=== PATIENT | male | born 1980 | race Caucasian/White ===

== ENCOUNTER 2022-09-08 16:59 | Outpatient (CLI) | payer BC, SELFPAY ==
[2022-09-08 09:25] LABS: Albumin* 4.6 g/dL (3.3-5.0); Chloride* 101 mmol/L (96-114); Sodium* 137 mmol/L (135-149)
[2022-09-08 09:27] LABS: Cholesterol* 123 mg/dL (90-199); Creatinine* 0.8 mg/dL (0.5-1.5); Estimated Glomerular Filt Rate 113 ml/min
[2022-09-08 09:28] LABS: Alanine Aminotransferase* 29 U/L (4-50); Alkaline Phosphatase* 84 U/L (40-150); Aspartate Amino Transferase* 26 U/L (12-35); Bilirubin Total* 1.1 mg/dL (0.1-1.5); Blood Urea Nitrogen* 12 mg/dL (5-24); Carbon Dioxide* 26 mmol/L (20-32); Glucose* 83 mg/dL (60-115); Total Protein* 7.4 g/dL (6.0-8.3); Triglycerides* 147 mg/dL (40-149)
[2022-09-08 09:29] LABS: Calcium* 9.4 mg/dL (8.4-10.6); HDL Cholesterol* 42 mg/dL (>=40); LDL Cholesterol Calculated 52 mg/dL (<100)
== END 2022-09-08 17:00 | disposition home or self-care (01) ==
PROVIDERS: PCP Family Medicine; Visit Provider Family Medicine
DX: I25.10 Atherosclerotic heart disease of native coronary artery without angina pectoris (principal)
CPT/HCPCS: 80053; 80061

== ENCOUNTER 2023-07-08 08:31 | Outpatient (CLI) | payer BC, SELFPAY | END 2023-07-08 08:32 | disposition home or self-care (01) | LOC: NFLDREF 07-09 12:39 | PROVIDERS: PCP Family Medicine; Referring Provider Family Medicine; Visit Provider Family Medicine | DX: Z00.00 Encounter for general adult medical examination without abnormal findings (principal); E78.5 Hyperlipidemia, unspecified; I10 Essential (primary) hypertension | CPT/HCPCS: 80053; 80061 ==

== ENCOUNTER 2023-10-18 12:44 | Outpatient (CLI) | payer BC, SELFPAY ==
[2023-10-18 13:45] VITALS: BP 140/78; PULSE 89; RESP 16
[2023-10-18] MEDS: PERFLUTREN LIPID MICROSPHERES 2 ML VIAL IV (13:47)
--- NOTE | 2023-10-18 14:06 | W.PM.STED ---
Stress Test Note Date Date of test: 10/18/23 Providers Primary care provider: Darrin Darden Stress test physician: Sherwin Carvalho Stress Test Note Stress test ordered: Stress Echo Indication for test: CAD Stress test medicine: Definity Results discussion: This pleasant 43-year-old gentleman presents for a stress echo, definity is needed. Discussion the risks benefits and side effects in reviewing the cardiac stress test medical history form he would like to proceed pretest EKG shows normal sinus rhythm, with a ventricular rate of 61. Q-waves are noted inferiorly in 2 3 and AVF, these may be pathological, there is no ST wave elevation noted, blood pressure was 102/76. Standard Jose M protocol is done over a time course of 9 minutes 20 seconds, he achieved a metabolic equivalent of 10.7 Mets with a maximum heart rate of 161. Test is terminated because of fulfillment of protocol, he did not have any chest pain or any anginal equivalent symptoms. There is no dysrhythmias, no ST wave changes suggestive of ischemia. Conditioning was felt to be average. Impression: Negative electrographic portion of stress echo Follow up suggested: Await echo images these will be read by Cardiology, clinical correlation with these will be needed, patient came back to baseline, left this testing facility in excellent condition.
== END 2023-10-18 13:48 | disposition home or self-care (01) ==
LOC: STRESS 12:44
PROVIDERS: PCP Family Medicine; Visit Provider Family Medicine
DX: I25.10 Atherosclerotic heart disease of native coronary artery without angina pectoris (principal); I73.9 Peripheral vascular disease, unspecified
CPT/HCPCS: 93016; 93325; 93351; Q9957

== ENCOUNTER 2023-12-20 05:23 | Emergency (ER) | payer BC, SELFPAY ==
[2023-12-20] VITALS (22 sets, daily range): BP systolic 112–132; BP diastolic 79–91; PULSE 58–67; RESP 16; TEMP 36.6; O2SAT 98–100
--- NOTE | 2023-12-20 06:01 | XR_ITS ---
Final Report Patient: NIRAJ CAMARGO Facility:?[facility] Patient ID:?[id number] Site Patient ID:?[id number]. Site :?[id number] Study:?XRay Chest portable-12/20/2023 6:13:00 AM Ordering Physician:?Jennyfer Guzman Final Report: Indication: Chest pain Technique: Chest one view Comparison: None Findings: The lungs are well-expanded and clear. No focal or diffuse opacity. No pulmonary edema. No effusion. No pneumothorax. Heart size normal for lung volumes and technique. Impression: Normal chest radiograph. Dictated by Fariba Stevens MD @ 12/20/2023 6:16:33 AM (Electronic Signature)
--- NOTE | 2023-12-20 06:19 | ED_ITS ---
HPI - Chest Pain General Date Seen: 12/20/23 Chief Complaint: Chest Pain Stated Complaint: chest pain Time Seen by Provider: 12/20/23 06:01 Source: patient, family and RN notes reviewed Mode of arrival: ambulatory Limitations: no limitations History of Present Illness HPI narrative: Woody is a very pleasant 43-year-old male with history of CO and stent placement in 2017 who comes to the emergency room with complaints of chest pain. Patient notes that he awoke at approximately 0430 hours and would have occasional episodes lasting less than 2nd of chest pain substernal lower chest. It seemed to be more associated with expiration but he cannot recreate that pain here. He had COVID 1 month ago but had complete resolution of his symptoms. He is not short of breath, nauseated nor has he experienced any lower extremity edema or calf tenderness. Here in the emergency room he does not have any pain. He still retains a gallbladder. Denies symptoms of reflux. He takes Plavix daily. Pain does not radiate into the back or into upper chest or into neck. Patient does note neck discomfort occasionally but states that this is been chronic and because he has type trapezial muscles. Patient denies increasing pain with activities such as walking. Related Data Home Medications Medication Instructions Recorded Confirmed lisinopril 5 mg tablet 5 mg PO BID 09/30/23 11/21/23 Previous Rx's Medication Instructions Recorded allopurinol 100 mg tablet 100 mg PO QDAY #90 tabs 07/11/23 atorvastatin 80 mg tablet 80 mg PO QDAY #90 tabs 07/11/23 bupropion HCl 300 mg 24 hr tablet, 300 mg PO QDAY #90 tabs 07/11/23 extended release carvedilol 12.5 mg tablet 12.5 mg PO BID #90 tabs 07/11/23 nitroglycerin 0.4 mg sublingual 0.4 mg sublingual Q5-15M #25 tabs 07/11/23 tablet clopidogrel 75 mg tablet (Plavix) 75 mg PO QDAY #90 tabs 09/30/23 nirmatrelvir 300 mg (150 mg 3 ea (3 x 300 mg (150 mg x 2)-100 11/21/23 x2)-ritonavir 100 mg tablet,dose mg) PO QAM AND QPM #30 tabs pack (Paxlovid) Allergies Allergy/AdvReac Type Severity Reaction Status Date / Time No Known Drug Allergies Allergy Verified 11/21/23 10:36 Review of Systems Status of ROS Reports: 10 or more systems reviewed and unremarkable except as noted in History and below Narrative COVID 1 month ago. Complete resolution of symptoms Const Denies: fever or chills Eyes Denies: change in vision ENMT Reports: neck pain (Chronic because of tight trapezial areas. No new pain tonight); Denies: throat pain Cardio Reports: chest pain; Denies: palpitations, swelling of feet/ankles, lightheadedness or shortness of breath with exertion Resp Denies: shortness of breath or cough GI Denies: abdominal pain, nausea or vomiting Musculo Reports: neck pain (Chronic because of tight trapezial areas. No new pain tonight); Denies: back pain Neuro Reports: headache (Occasional but none tonight) PFSH [facility] Medical History Dyslipidemia ?E78.5 - Hyperlipidemia, unspecified (ICD-10) PAD (peripheral artery disease) ?I73.9 - Peripheral vascular disease, unspecified (ICD-10) CO (myocardial infarction) ?I21.9 - Acute myocardial infarction, unspecified (ICD-10) History of prediabetes ?Z87.898 - Personal history of other specified conditions (ICD-10) MICHELE on CPAP ?G47.33 - Obstructive sleep apnea (adult) (pediatric) (ICD-10) ?Z99.89 - Dependence on other enabling machines and devices (ICD-10) HTN (hypertension) ?I10 - Essential (primary) hypertension (ICD-10) Major depression ?F32.9 - Major depressive disorder, single episode, unspecified (ICD-10) CAD (coronary artery disease) ?I25.10 - Atherosclerotic heart disease of [place] coronary artery without angina pectoris (ICD-10) Gout ?M10.9 - Gout, unspecified (ICD-10) Surgical History History of vasectomy ?Z98.52 - Vasectomy status (ICD-10) Stented coronary artery ?Z95.5 - Presence of coronary angioplasty implant and graft (ICD-10) 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) ?I70.209 - Unspecified atherosclerosis of [place] arteries of extremities, unspecified extremity (ICD-10) Social History What is your current living situation?: I presently have a place to live Problems where you live: no known problems In the past 12 months, utilities in danger of being shut off: no In past 12 months, lack of transportation kept you from medical appts, meetings, work, or getting things needed for daily living: no In the past 12 mos, have been you worried that your food would run out before you had money to buy more?: never true In the past 12 mos, the food you bought just didn't last and you didn't have money to buy more?: never true Smoking Status: Former smoker Non-prescribed substance use: denies use How often does anyone, including family, friends and others, physically hurt you : never How often does anyone, including family, friends and others, insult or talk down to you: never How often does anyone, including family, friends and others, threaten you with harm: never How often does anyone, including family, friends and others, scream or curse at you: never Little interest or pleasure in doing things: not at all Feeling down, depressed, or hopeless: not at all Exam Narrative Exam Narrative: Alert and oriented. Very well-spoken gentleman no acute distress. External ears eyes nose clear. Heart with regular rate and rhythm without additional heart sounds or murmurs. Lungs are clear bilaterally. Abdomen is obese soft nontender. Negative Gomez sign. Mild chest wall discomfort mid aspect just to the right of the sternum. Lower extremities with no edema. No calf tenderness with palpation. Negative Homans sign. Moving all extremities Const Vital Signs, click to edit/add: Vital Signs - 24 hr 12/20/23 05:54 12/20/23 07:04 12/20/23 07:05 Temperature 97.8 F Pulse Rate 63 60 Pulse Rate [Pulse Oximeter] 62 Respiratory Rate 16 16 Blood Pressure 114/80 Blood Pressure [Left Upper Arm] 122/80 Pulse Oximetry 99 98 100 Oxygen Delivery Method Room Air 12/20/23 07:15 12/20/23 07:17 12/20/23 07:18 Temperature Pulse Rate 59 L 62 64 Pulse Rate [Pulse Oximeter] Respiratory Rate 16 Blood Pressure 114/89 Blood Pressure [Left Upper Arm] Pulse Oximetry 99 99 99 Oxygen Delivery Method 12/20/23 07:30 12/20/23 07:31 12/20/23 07:45 Temperature Pulse Rate 58 L 65 60 Pulse Rate [Pulse Oximeter] Respiratory Rate 16 Blood Pressure 116/80 Blood Pressure [Left Upper Arm] Pulse Oximetry 99 100 99 Oxygen Delivery Method 12/20/23 07:46 12/20/23 08:00 12/20/23 08:01 Temperature Pulse Rate 64 64 66 Pulse Rate [Pulse Oximeter] Respiratory Rate 16 Blood Pressure 124/79 129/91 H Blood Pressure [Left Upper Arm] Pulse Oximetry 99 100 99 Oxygen Delivery Method 12/20/23 08:09 12/20/23 08:15 12/20/23 08:17 Temperature Pulse Rate 64 62 62 Pulse Rate [Pulse Oximeter] Respiratory Rate Blood Pressure 117/79 Blood Pressure [Left Upper Arm] Pulse Oximetry 98 100 98 Oxygen Delivery Method 12/20/23 08:30 12/20/23 08:31 12/20/23 08:45 Temperature Pulse Rate 61 63 63 Pulse Rate [Pulse Oximeter] Respiratory Rate Blood Pressure 115/80 Blood Pressure [Left Upper Arm] Pulse Oximetry 100 100 98 Oxygen Delivery Method 12/20/23 08:46 12/20/23 08:47 12/20/23 09:00 Temperature Pulse Rate 67 62 65 Pulse Rate [Pulse Oximeter] Respiratory Rate 16 Blood Pressure 112/83 Blood Pressure [Left Upper Arm] Pulse Oximetry 99 100 100 Oxygen Delivery Method 12/20/23 09:01 Temperature Pulse Rate 66 Pulse Rate [Pulse Oximeter] Respiratory Rate 16 Blood Pressure 132/91 H Blood Pressure [Left Upper Arm] Pulse Oximetry 99 Oxygen Delivery Method Documenting provider has reviewed patient's vital signs: yes Course Course ED Course: Differential diagnosis includes but is not limited to acute coronary event, intermittent angina, aortic dissection, GERD, esophageal spasm, musculoskeletal/chest wall pain, pancreatitis, biliary colic. Will place an IV, EKG troponin currently ordered, CBC comprehensive panel CRP and D-dimer pending. Reevaluation(s) Reevaluation #1: Patient noted to have a negative troponin and reassuring EKG. Next troponin s cheduled for 0830. D-dimer is negative. Vital Signs Vital signs: Initial Vital Signs Temperature 97.8 F 12/20/23 05:54 Temperature Source Temporal Artery Scan 12/20/23 05:54 Pulse Rate 62 12/20/23 05:54 Respiratory Rate 16 12/20/23 05:54 Blood Pressure 122/80 12/20/23 05:54 Blood Pressure Mean 94 12/20/23 05:54 Blood Pressure Position Supine 12/20/23 05:54 Pulse Oximetry 99 12/20/23 05:54 Oxygen Delivery Method Room Air 12/20/23 05:54 Vital Signs Temperature 97.8 F 12/20/23 05:54 Pulse Rate 62 12/20/23 05:54 Respiratory Rate 16 12/20/23 05:54 Blood Pressure 122/80 12/20/23 05:54 Pulse Oximetry 99 12/20/23 05:54 Oxygen Delivery Method Room Air 12/20/23 05:54 Temperature 97.8 F 12/20/23 05:54 Pulse Rate 66 12/20/23 09:01 Respiratory Rate 16 12/20/23 09:01 Blood Pressure 132/91 H 12/20/23 09:01 Pulse Oximetry 99 12/20/23 09:01 Oxygen Delivery Method Room Air 12/20/23 05:54 MDM - Chest Pain MDM Narrative Medical decision making narrative: 1. Atypical chest pain-no evidence of acute coronary syndrome, change in EKG, elevated troponin or elevated D-dimer to suggest life-threatening situation at this time. Given previous COVID of course we are concerned about PE and patient has good O2 sats and a negative D-dimer. Thus I do not think that his chest pain is related to pulmonary embolism. Patient has continued to remain hemodynamically stable. He does tell me that he had a stress test a month ago that was okay. Therefore, with 2 sets of negative cardiac enzymes, reassuring lab values I do feel that he is safe to go. However, we do talk about the importance of seeking medical attention if this discomfort should worsen, become more regular, occur with other symptoms. He had is in agreement with this. I would have him follow-up with his primary MD for recheck. 2. Disposition-home at this time. Return for worsening symptoms and as needed. Medical Records Data Attestation: I reviewed the patient's medical records. Lab Data Attestation: I reviewed the patient's lab results. Labs: Lab Results 02/20/24 02/20/24 02/20/24 Range/Units 06:01 06:17 08:30 WBC 7.15 (4.50-11.00) K/uL RBC 4.99 (4.30-5.90) m/uL Hgb 15.2 (13.5-17.5) gm/dL Hct 45.9 (37.0-53.0) % MCV 92 (80-100) fL MCH 31 (26-34) pg MCHC 33 (32-36) gm/dL RDW Coeff of Sondra 12.8 (11.5-15.5) % Plt Count 253 (140-440) K/uL Neut % (Auto) 72.8 H (42.0-72.0) % Lymph % (Auto) 16.8 L (20-44) % Divide % (Auto) 7.6 (0.0-11.0) % Eos % (Auto) 2.2 (0.0-7.0) % Baso % (Auto) 0.3 (0.0-3.0) % Neut # (Auto) 5.20 (1.7-7.0) K/uL Lymph # (Auto) 1.20 (0.90-2.90) K/uL Divide # (Auto) 0.50 (0.00-0.90) K/UL Eos # (Auto) 0.16 (0.00-0.50) K/uL Baso # (Auto) 0.02 (0.00-0.30) K/uL Abs Immat Gran (auto) 0.02 (0.00-0.30) K/uL Imm/Tot Granulo (auto) 0.3 % D-Dimer Quant (PE/DVT) < 0.27 (0.00-0.50) ug/ml Sodium 138 (135-149) mmol/L Potassium 4.1 (3.6-5.1) mmol/L Chloride 103 (96-114) mmol/L Carbon Dioxide 29 (20-32) mmol/L Anion Gap 6 L (7-15) mEq/L BUN 16 (5-24) mg/dL Creatinine 0.8 (0.5-1.5) mg/dL Estimated GFR 113 ml/min Glucose 108 (60-115) mg/dL Calcium 9.7 (8.4-10.6) mg/dL Total Bilirubin 1.0 (0.1-1.5) mg/dL AST 26 (12-35) U/L ALT 44 (4-50) U/L Alkaline Phosphatase 75 (40-150) U/L C-Reactive Protein < 0.5 L (0.5-1.0) mg/dL Total Protein 7.8 (6.0-8.3) g/dL Albumin 4.5 (3.3-5.0) g/dL Lipase 93 (23-300) U/L POC Troponin I 0.00 L 0.00 L (0.01-0.04) ng/ml Imaging Data Chest x-ray: Attestation: I have reviewed the pertinent imaging results. My impression: By my read no evidence of widened mediastinum, infiltrates. Radiologist's impression: The lungs are well-expanded and clear. No focal or diffuse opacity. No pulmonary edema. No effusion. No pneumothorax. Heart size normal for lung volumes and technique. Impression: Normal chest radiograph. ECG Data Attestation: I personally reviewed and interpreted this ECG as follows: ECG interpretation date: 12/20/23 Interpretation: EKG by my read shows sinus rhythm at a rate of 60. There are Q-waves noted in 3 and AVF suggestive of old inferior infarct. Otherwise no other findings suggestive of acute coronary event. EKG 2. By my read sinus rhythm at a rate of 64. Again old Q-waves present but otherwise no acute ST or T-wave changes. I was unable to visualize a previous EKG but notes from a stress echo state that there were Q-waves in 2 3 and AVF. This would be consistent with what I am seeing today with improvement of lead 2. Discharge Plan Discharge Clinical Impression: Atypical chest pain Patient Disposition: Home, Self-Care Condition: Unchanged Additional Instructions: At this time we have found no evidence of increased inflammatory markers suggestive of PE or aortic dissection, your chest x-ray is normal, your EKGs are normal and you have 2 cardiac enzyme test called troponins which were negative. I suggest follow-up with your primary MD. I would recommend seeking medical attention if your chest pain becomes constant gets worse or is associated with other symptoms. Prescriptions: No Action allopurinol 100 mg tablet 100 mg PO QDAY Qty: 90 3RF atorvastatin 80 mg tablet 80 mg PO QDAY Qty: 90 3RF bupropion HCl 300 mg tablet extended release 24 hr 300 mg PO QDAY Qty: 90 3RF carvedilol 12.5 mg tablet 12.5 mg PO BID Qty: 90 3RF nitroglycerin 0.4 mg tablet, sublingual 0.4 mg sublingual Q5-15M Qty: 25 0RF lisinopril 5 mg tablet 5 mg PO BID clopidogrel [Plavix] 75 mg tablet 75 mg PO QDAY Qty: 90 3RF Paxlovid 300 mg (150 mg x 2)-100 mg tablets,dose pack 3 ea PO QAM AND QPM Qty: 30 0RF Follow Up/Referrals: Darrin Darden MD [Primary Care Provider] - Stand Alone Forms: [facility] Info Instructions
[2023-12-20 06:25] LABS: Basophils Absolute Auto 0.02 K/uL (0.00-0.30); Basophils Percent Auto 0.3 % (0.0-3.0); Eosinophils Absolute Auto 0.16 K/uL (0.00-0.50); Eosinophils Percent Auto 2.2 % (0.0-7.0); Hematocrit 45.9 % (37.0-53.0); Hemoglobin* 15.2 gm/dL (13.5-17.5); Immature Granulocytes Abs Auto 0.02 K/uL (0.00-0.30); Immature Granulocytes Pct Auto 0.3 %; Lymphocytes Percent Auto 16.8 % (20-44); Mean Corpuscular HGB Conc 33 gm/dL (32-36); Mean Corpuscular Hemoglobin 31 pg (26-34); Mean Corpuscular Volume 92 fL (80-100); Monocytes Percent Auto 7.6 % (0.0-11.0); Neutrophils Percent Auto 72.8 % (42.0-72.0); Platelet Count* 253 K/uL (140-440); RDW Coefficient of Variation % 12.8 % (11.5-15.5); Red Blood Count 4.99 m/uL (4.30-5.90); White Blood Count* 7.15 K/uL (4.50-11.00)
[2023-12-20 06:28] LABS: Slide Review Reflex No
[2023-12-20 06:44] LABS: Albumin* 4.5 g/dL (3.3-5.0); Chloride* 103 mmol/L (96-114); Sodium* 138 mmol/L (135-149)
[2023-12-20 06:45] LABS: Potassium* 4.1 mmol/L (3.6-5.1)
[2023-12-20 06:47] LABS: Creatinine* 0.8 mg/dL (0.5-1.5); Estimated Glomerular Filt Rate 113 ml/min
[2023-12-20 06:48] LABS: Alanine Aminotransferase* 44 U/L (4-50); Alkaline Phosphatase* 75 U/L (40-150); Anion Gap 6 mEq/L (7-15); Aspartate Amino Transferase* 26 U/L (12-35); Blood Urea Nitrogen* 16 mg/dL (5-24); Calcium* 9.7 mg/dL (8.4-10.6); Carbon Dioxide* 29 mmol/L (20-32); Glucose* 108 mg/dL (60-115); Lipase* 93 U/L (23-300); Total Protein* 7.8 g/dL (6.0-8.3)
[2023-12-20 06:52] LABS: C Reactive Protein* < 0.5 mg/dL (0.5-1.0)
[2023-12-20 07:39] LABS: D Dimer Quantitative* < 0.27 ug/ml (0.00-0.50)
== END 2023-12-20 09:09 | disposition home or self-care (01) ==
PROVIDERS: Emergency Provider Family Medicine; PCP Family Medicine
DX: R07.89 Other chest pain (principal)
CPT/HCPCS: 36415; 71045; 80053; 83690; 84484; 85025; 85379; 86140; 93005; 99284; 99285

== ENCOUNTER 2024-08-13 08:47 | Outpatient (CLI) | payer BC, SELFPAY | END 2024-08-13 08:48 | disposition home or self-care (01) | LOC: NFLDREF 11:17 | PROVIDERS: PCP Family Medicine; Referring Provider Family Medicine; Visit Provider Family Medicine | DX: Z00.00 Encounter for general adult medical examination without abnormal findings (principal); I25.10 Atherosclerotic heart disease of native coronary artery without angina pectoris | CPT/HCPCS: 80053; 80061 ==

== ENCOUNTER 2025-08-28 07:24 | Outpatient (CLI) | payer OTHER, SELFPAY | END 2025-08-28 07:25 | disposition home or self-care (01) | LOC: NFLDREF 08-29 18:09 | PROVIDERS: PCP Family Medicine; Referring Provider Family Medicine; Visit Provider Family Medicine | DX: I25.10 Atherosclerotic heart disease of native coronary artery without angina pectoris (principal); E78.5 Hyperlipidemia, unspecified | CPT/HCPCS: 80053; 80061 ==

== ENCOUNTER 2025-10-17 07:06 | Outpatient (CLI) | payer OTHER, SELFPAY ==
--- NOTE | 2025-10-17 08:50 | P.ANES_ITS ---
Anesthesia Charges Start Date/Time Anesthesia Start Date: 10/17/25 Anesthesia Start Time: 08:15 Stop Date/Time Anesthesia Stop Date: 10/17/25 Anesthesia Stop Time: 08:41 Coding CPT Codes CPT Codes: ANES LWR INTST NDSC NOS - 87253 ([id number]) P3 - PATIENT W/SEVERE SYS DISEASE, QK - OIL PIT ATTENDANT 2-4 CNCRNT ANES PROC
--- NOTE | 2025-10-17 08:50 | W.ANESCHARGE ---
Anesthesia Charges Start Date/Time Anesthesia Start Date: 10/17/25 Anesthesia Start Time: 08:15 Stop Date/Time Anesthesia Stop Date: 10/17/25 Anesthesia Stop Time: 08:41 Coding CPT Codes CPT Codes: ANES LWR INTST NDSC NOS - 67587 ([id number]) P3 - PATIENT W/SEVERE SYS DISEASE, QK - FOREIGN LANGUAGE STENOGRAPHER 2-4 CNCRNT ANES PROC
--- NOTE | 2025-10-17 10:23 | P.ANES_ITS ---
Anesthesia Charges Start Date/Time Anesthesia Start Date: 10/17/25 Anesthesia Start Time: 08:15 Stop Date/Time Anesthesia Stop Date: 10/17/25 Anesthesia Stop Time: 08:41 Coding CPT Codes CPT Codes: ANES LWR INTST NDSC NOS - 03169 ([id number]) QX - GROCERY STOCK CLERK SVC W/ MD MED DIRECTION, QK - SENIOR COMMUNICATIONS ENGINEER 2-4 CNCRNT ANES PROC, P3 - PATIENT W/SEVERE SYS DISEASE
--- NOTE | 2025-10-17 10:23 | W.ANESCHARGE ---
Anesthesia Charges Start Date/Time Anesthesia Start Date: 10/17/25 Anesthesia Start Time: 08:15 Stop Date/Time Anesthesia Stop Date: 10/17/25 Anesthesia Stop Time: 08:41 Coding CPT Codes CPT Codes: ANES LWR INTST NDSC NOS - 11747 ([id number]) QX - FENCE RIDER SVC W/ MD MED DIRECTION, QK - STENCIL TYPIST 2-4 CNCRNT ANES PROC, P3 - PATIENT W/SEVERE SYS DISEASE
== END 2025-10-17 07:07 | disposition home or self-care (01) ==
LOC: OP CLINIC 07:07
PROVIDERS: PCP Family Medicine; Visit Provider Surgery
DX: Z12.11 Encounter for screening for malignant neoplasm of colon (principal); D12.2 Benign neoplasm of ascending colon; K57.30 Diverticulosis of large intestine without perforation or abscess without bleeding
CPT/HCPCS: 00811; 00812; 45385; J2704